=== PATIENT | female | born 1990 | race Caucasian/White ===

== ENCOUNTER 2018-02-11 16:04 | Emergency (ER) | payer MEDICAID ==
[~2018-02-11] VITALS: Ht 160 cm; Wt 54.4 kg
[2018-02-11] MEDS ORDERED: LORAZEPAM 0.5 MG TABLET PO ONE (16:30)
[2018-02-11] MEDS ORDERED: LORAZEPAM 1 MG TABLET ONE (16:37)
--- NOTE | 2018-02-11 17:11 | NUR ---
MSE COMPLETED, PT STATED SHE FELTG BETTER AND WAS THEN D/C'D HOME, ACI/RX X1/EKG COPY GIVEN. PT AMBULATEDV W/O DIFF/TOOK ALL BELONGINGS.
[2018-02-11 17:13] VITALS: BP 128/77
== END 2018-02-11 17:14 | disposition home or self-care (01) ==
LOC: ER 16:07
DX: F41.9 Anxiety disorder, unspecified (principal); F11.23 Opioid dependence with withdrawal; Z88.2 Allergy status to sulfonamides
CPT/HCPCS: 93005; A4663

== ENCOUNTER 2018-07-01 20:52 | Emergency (ER) | payer MEDICAID ==
[~2018-07-01] VITALS: Ht 160 cm; Wt 54.4 kg
[2018-07-01] MEDS ORDERED: LORAZEPAM 1 MG TABLET ONE (21:07)
[2018-07-01] MEDS: LORAZEPAM 0.5 MG TABLET PO ONE (21:08)
--- NOTE | 2018-07-01 21:10 | NUR ---
Patient discharged to home in stable conditon. Written and verbal after care instructions given. Patient verbalizes understanding of instructions.
[2018-07-01 21:11] VITALS: BP 121/77
== END 2018-07-01 21:11 | disposition home or self-care (01) ==
LOC: ER 20:52
DX: F41.0 Panic disorder [episodic paroxysmal anxiety] (principal); Z88.2 Allergy status to sulfonamides
CPT/HCPCS: A4663